=== PATIENT | female | born 1985 | race Two or more races ===

== ENCOUNTER 2022-03-03 23:20 | Emergency (ER) | payer OTHER ==
[~2022-03-03] VITALS: Ht 160 cm; Wt 63.5 kg
[2022-03-04 00:21] VITALS: BP 142/73
--- NOTE | 2022-03-04 01:19 | NUR ---
Patient discharged to home in stable condition. Written and verbal after care instructions given. Patient verbalizes understanding of instruction.
== END 2022-03-04 01:21 | disposition home or self-care (01) ==
LOC: ER 23:23
DX: S91.202A Unspecified open wound of left great toe with damage to nail, initial encounter (principal); X58.XXXA Exposure to other specified factors, initial encounter; Y93.89 Activity, other specified; Y92.89 Other specified places as the place of occurrence of the external cause; Y99.8 Other external cause status

== ENCOUNTER 2023-02-14 13:05 | Emergency (ER) | payer OTHER ==
[~2023-02-14] VITALS: Ht 165.1 cm; Wt 80.7 kg
[2023-02-14] MEDS ORDERED: IBUPROFEN 600 MG TABLET ONE (13:56)
[2023-02-14] MEDS ORDERED: IBUPROFEN 600 MG TABLET PO ONE (14:00)
[2023-02-14] MEDS ORDERED: PROM118S5 PO (14:12)
[2023-02-14 15:14] VITALS: BP 132/72; TEMP 99; O2SAT 100
== END 2023-02-14 15:14 | disposition home or self-care (01) ==
LOC: ER 13:20
DX: J06.9 Acute upper respiratory infection, unspecified (principal); R07.0 Pain in throat; E11.9 Type 2 diabetes mellitus without complications; Z88.0 Allergy status to penicillin; Z88.8 Allergy status to other drugs, medicaments and biological substances

== ENCOUNTER 2023-03-21 16:39 | Emergency (ER) | payer OTHER ==
[~2023-03-21] VITALS: Ht 152.4 cm; Wt 90.7 kg
[~2023-03-21 16:39] MED LIST: PROM118S5 PO
[2023-03-21] MEDS ORDERED: IV NS 0.9% 1,000 ML IV ONE (18:00)
[2023-03-21] MEDS ORDERED: ONDANSETRON HCL/PF - ER 4 MG/2 ML VIAL IV ONE (18:00)
[2023-03-21] MEDS ORDERED: ONDANSETRON HCL/PF 4 MG/2 ML VIAL ONE (18:04)
[2023-03-21 18:24] LABS: BASOPHILS # (AUTO) 0.1 K/uL (0.0-0.2); BASOPHILS % (AUTO) 0.5 % (0.0-2.0); EOSINOPHILS # (AUTO) 0.1 K/uL (0.0-0.7); EOSINOPHILS % (AUTO) 0.5 % (0.0-6.0); HEMATOCRIT 36 % (33-45); HEMOGLOBIN 11.8 g/dL (11.5-14.8); LYMPHOCYTES # (AUTO) 3.7 K/uL (0.8-4.8); MEAN CORPUSCULAR HEMOGLOBIN 26 PG (26.0-33.0); MEAN CORPUSCULAR HGB CONC 33 g/dl (31.0-36.0); MEAN CORPUSCULAR VOLUME 81 fL (82-100); MONOCYTES # (AUTO) 0.6 K/uL (0.1-1.30); MONOCYTES % (AUTO) 5.4 % (2.0-12.0); NEUTROPHILS # (AUTO) 6.8 K/uL (1.8-8.9); NEUTROPHILS % (AUTO) 60.6 % (43.0-81.0); PLATELET COUNT (AUTO) 177 K/uL (150-450); RED BLOOD CELL COUNT(AUTO) 4.48 MIL/uL (4.0-5.2); RED CELL DISTRIBUTION WIDTH 13.9 % (11.5-15.0); WHITE BLOOD COUNT (AUTO) 11.3 K/uL (4.3-11.0)
[2023-03-21 18:40] LABS: CALCIUM, SERUM 9.1 mg/dL (8.5-10.1); CREATININE 0.5 mg/dL (0.6-1.3); POTASSIUM 3.3 mmol/L (3.5-5.1)
[2023-03-21] MEDS ORDERED: KETOROLAC TROMETHAMINE INJ 30 MG/ML VIAL ONE (19:00)
[2023-03-21] MEDS ORDERED: KETOROLAC TROMETHAMINE INJ 30 MG/ML VIAL IV ONE (19:00)
[2023-03-21 19:06] LABS: APPEARANCE,URINE CLEAR (CLEAR); BILIRUBIN,URINE NEGATIVE (NEGATIVE); BLOOD, URINE 1+ Ery/uL (NEGATIVE); COLOR,URINE YELLOW (YELLOW); KETONES,URINE NEGATIVE (NEGATIVE); LEUKOCYTE ESTERASE ,URINE NEGATIVE (NEGATIVE); NITRITE, URINE NEGATIVE (NEGATIVE); PH,URINE 5.5 (5.0-8.0); PROTEIN,URINE NEGATIVE (NEGATIVE); UGLUCOSE NEGATIVE (NEGATIVE); UROBILINOGEN,URINE 0.2 EU/dL (0.2)
[2023-03-21 19:30] LABS: ADD URINE CULTURE NO; BACTERIA,URINE RARE /HPF (None Seen); SQUAMOUS EPITHELIAL CELL,UR 0-2 /HPF (None Seen); WBC,URINE 0-2 /HPF (0-3)
[2023-03-21] MEDS ORDERED: POTASSIUM CHLORIDE 20 MEQ TAB.PRT.SR PO ONE ×2 (19:30→19:49)
[2023-03-21] MEDS ORDERED: FAMO20TA8 PO (19:53)
[2023-03-21] MEDS ORDERED: SIME80TA15 PO (19:53)
[2023-03-21 19:54] VITALS: BP 158/91; TEMP 98.7; O2SAT 100
== END 2023-03-21 19:57 | disposition home or self-care (01) ==
LOC: ER 16:41
DX: E11.649 Type 2 diabetes mellitus with hypoglycemia without coma (principal); R53.1 Weakness; Z79.4 Long term (current) use of insulin; Z88.0 Allergy status to penicillin; Z88.8 Allergy status to other drugs, medicaments and biological substances
CPT/HCPCS: 99284; 96374; 96361; 96375; 85025; 80048; 81001; 36415; J1885; J2405; J7030

== ENCOUNTER 2023-05-18 02:41 | Emergency (ER) | payer OTHER ==
[~2023-05-18] VITALS: Ht 157.5 cm; Wt 90.7 kg
[~2023-05-18 02:41] MED LIST changes: +FAMO20TA8 PO; +SIME80TA15 PO
[2023-05-18] MEDS ORDERED: diphenhydrAMINE HCL 50 MG CAPSULE PO ONE (03:30)
[2023-05-18] MEDS ORDERED: predniSONE 10 MG TABLET PO ONE (03:30)
[2023-05-18] MEDS ORDERED: FAMOTIDINE (20 MG) 20 MG TABLET PO ONE (03:30)
[2023-05-18] MEDS ORDERED: diphenhydrAMINE HCL 50 MG CAPSULE ONE (03:59)
[2023-05-18] MEDS ORDERED: predniSONE 20 MG TABLET ONE (03:59)
[2023-05-18] MEDS ORDERED: FAMOTIDINE (20 MG) 20 MG TABLET ONE (04:00)
[2023-05-18] MEDS ORDERED: PRED20TA PO (05:19)
[2023-05-18 05:30] VITALS: BP 115/80; TEMP 98.3; O2SAT 98
== END 2023-05-18 05:30 | disposition home or self-care (01) ==
LOC: ER 02:42
DX: T78.40XA Allergy, unspecified, initial encounter (principal); E11.9 Type 2 diabetes mellitus without complications; Z88.0 Allergy status to penicillin; Z88.8 Allergy status to other drugs, medicaments and biological substances; X58.XXXA Exposure to other specified factors, initial encounter
CPT/HCPCS: 99284; Q0163; J7512 ×2

== ENCOUNTER 2024-07-18 10:09 | Emergency (ER) | payer OTHER ==
[~2024-07-18] VITALS: Ht 152.4 cm; Wt 99.8 kg
[~2024-07-18 10:09] MED LIST changes: +PRED20TA PO
[2024-07-18 10:29] VITALS: BP 154/92; TEMP 98.2; O2SAT 97
[2024-07-18] MEDS ORDERED: KETOROLAC TROMETHAMINE 15 MG/ML VIAL ONE (11:39)
[2024-07-18] MEDS: KETOROLAC TROMETHAMINE 15 MG/ML VIAL IM ONE (11:45)
[2024-07-18] MEDS ORDERED: INDO50CA92 PO (12:33)
== END 2024-07-18 12:45 | disposition home or self-care (01) ==
LOC: ER 10:17
DX: M79.672 Pain in left foot (principal); M10.9 Gout, unspecified; E11.9 Type 2 diabetes mellitus without complications; Z79.52 Long term (current) use of systemic steroids; Z88.0 Allergy status to penicillin; Z88.5 Allergy status to narcotic agent
CPT/HCPCS: 99283; 96372; 73630; J1885

== ENCOUNTER 2024-08-28 21:13 | Emergency (ER) | payer MEDICAID, OTHER ==
[~2024-08-28] VITALS: Ht 162.6 cm; Wt 68.0 kg
[~2024-08-28 21:13] MED LIST changes: +INDO50CA92 PO
[2024-08-28 21:43] LABS: BASOPHILS # (AUTO) 0.1 K/uL (0.0-0.2); EOSINOPHILS # (AUTO) 0.1 K/uL (0.0-0.7); EOSINOPHILS % (AUTO) 0.5 % (0.0-6.0); HEMATOCRIT 33 % (33-45); HEMOGLOBIN 11.4 g/dL (11.5-14.8); LYMPHOCYTES # (AUTO) 3.1 K/uL (0.8-4.8); LYMPHOCYTES % (AUTO) 28.6 % (20.0-44.0); MEAN CORPUSCULAR HEMOGLOBIN 27 PG (26.0-33.0); MEAN CORPUSCULAR HGB CONC 34 g/dl (31.0-36.0); MEAN CORPUSCULAR VOLUME 78 fL (82-100); MONOCYTES # (AUTO) 0.6 K/uL (0.1-1.30); MONOCYTES % (AUTO) 5.6 % (2.0-12.0); NEUTROPHILS # (AUTO) 7.1 K/uL (1.8-8.9); NEUTROPHILS % (AUTO) 64.3 % (43.0-81.0); PLATELET COUNT (AUTO) 193 K/uL (150-450); RED BLOOD CELL COUNT(AUTO) 4.26 MIL/uL (4.0-5.2); RED CELL DISTRIBUTION WIDTH 14.1 % (11.5-15.0)
[2024-08-28 22:11] LABS: CALCIUM, SERUM 9.8 mg/dL (8.5-10.1); CARBON DIOXIDE 27 mmol/L (21-32); CHLORIDE 102 mmol/L (98-107); CREATININE 0.7 mg/dL (0.6-1.3); GLUCOSE 192 mg/dL (74-106); POTASSIUM 4.5 mmol/L (3.5-5.1); SODIUM SERUM 136 mmol/L (136-145); UREA NITROGEN, BLOOD 19 mg/dL (7-18)
[2024-08-28 22:25] LABS: ALANINE AMINOTRANSFERASE 28 U/L (12-78); ALBUMIN 3.4 g/dL (3.4-5.0); ALKALINE PHOSPHATASE 130 U/L (46-116); ASPARTATE AMINOTRANSFERASE 19 U/L (15-37); BILIRUBIN,DIRECT 0.1 mg/dL (0.0-0.2); BILIRUBIN,TOTAL 0.2 mg/dL (0.2-1.0); NT-PRO BNP 123 pg/mL (0-125)
[2024-08-28] MEDS ORDERED: KETOROLAC TROMETHAMINE 15 MG/ML VIAL ONE (22:28)
[2024-08-28] MEDS ORDERED: ONDANSETRON HCL/PF 4 MG/2 ML VIAL ONE (22:28)
[2024-08-28] MEDS: ONDANSETRON HCL/PF - ER 4 MG/2 ML VIAL IV ONE (22:30)
[2024-08-28] MEDS: IV NS 0.9% 1,000 ML BAG IV ONE (22:30)
[2024-08-28] MEDS: KETOROLAC TROMETHAMINE 15 MG/ML VIAL IV ONE (22:49)
[2024-08-29] MEDS: ACETAMINOPHEN ES 500 MG TABLET PO ONE (00:30)
[2024-08-29] MEDS ORDERED: ACETAMINOPHEN ES 500 MG TABLET ONE (00:31)
[2024-08-29] MEDS ORDERED: IBUP-1490 PO (00:35)
[2024-08-29] MEDS ORDERED: BENZ-13 PO (00:35)
[2024-08-29] MEDS ORDERED: GUAI-946 PO (00:35)
[2024-08-29] MEDS ORDERED: ACET-2605 PO (00:35)
[2024-08-29 00:45] VITALS: BP 144/73; TEMP 98; O2SAT 98
== END 2024-08-29 00:45 | disposition home or self-care (01) ==
LOC: ER 21:15
DX: B34.9 Viral infection, unspecified (principal); R07.89 Other chest pain; R03.0 Elevated blood-pressure reading, without diagnosis of hypertension; E11.9 Type 2 diabetes mellitus without complications; R51.9 Headache, unspecified; R10.2 Pelvic and perineal pain; Z79.52 Long term (current) use of systemic steroids; Z88.0 Allergy status to penicillin; Z88.5 Allergy status to narcotic agent
CPT/HCPCS: 99285; 96374; 71045; 96361; 96375; 93005; 85025; 80048; 80076; 36415; 84484 ×2; 83880; 84702; J1885; J2405 ×2; J7030

== ENCOUNTER 2025-02-06 19:50 | Emergency (ER) | payer OTHER ==
[~2025-02-06] VITALS: Ht 165.1 cm; Wt 99.8 kg
[~2025-02-06 19:50] MED LIST changes: +ACET-2605 PO; +BENZ-13 PO; +GUAI-946 PO; +IBUP-1490 PO
[2025-02-06 20:53] VITALS: TEMP 98.7
[2025-02-06] MEDS ORDERED: CLINDAMYCIN HCL 150 MG CAPSULE ONE (22:37)
[2025-02-06] MEDS: CLINDAMYCIN HCL 150 MG CAPSULE PO ONE (22:39)
[2025-02-06] MEDS ORDERED: NYST15PO4 TP (22:53)
[2025-02-06] MEDS ORDERED: CLIN300C12 PO (22:53)
[2025-02-06 23:04] VITALS: BP 139/80; O2SAT 98
== END 2025-02-06 23:04 | disposition home or self-care (01) ==
LOC: ER 19:54
DX: S91.234 Puncture wound without foreign body of right lesser toe(s) with damage to nail (principal); X58.XXXA Exposure to other specified factors, initial encounter; Y93.89 Activity, other specified; Y92.89 Other specified places as the place of occurrence of the external cause; Y99.8 Other external cause status